=== PATIENT | female | born 1980 | race Caucasian/White ===

== ENCOUNTER 2020-10-03 14:10 | Emergency (ER) | payer MEDICARE, OTHER ==
[2020-10-03 16:49] LABS: RED BLOOD COUNT 3.52 M/UL (4.00-5.10); WHITE BLOOD COUNT 4.3 K/UL (4.5-11.0)
[2020-10-03 17:10] LABS: BUN/CREATININE RATIO 26 (0-10)
[2020-10-03] MEDS ORDERED: ZITHROMAX250 MG PO (21:00)
[2020-10-03] MEDS ORDERED: CIPRO HC OTIC S10 ML EARRT (21:04)
== END 2020-10-03 21:17 | disposition home or self-care (01) ==
LOC: ER1 14:10
PROVIDERS: Physician Assistant Medical
DX: H61.301 Acquired stenosis of right external ear canal, unspecified (principal); E87.1 Hypo-osmolality and hyponatremia; Z88.1 Allergy status to other antibiotic agents; Z88.0 Allergy status to penicillin
CPT/HCPCS: 70450; 80053; 85025; 99284; J7030